=== PATIENT | female | born 1955 | race Caucasian/White ===

== ENCOUNTER 2020-08-09 11:23 | Day surgery (SDC) | payer OTHER ==
[2020-08-07 13:43] VITALS: BMI 22.3
[2020-08-09] MEDS ORDERED: MIDAZOLAM HCL 2 MG/2 ML SINGLE DOSE VIAL ONE ×2 (12:45→13:20)
[2020-08-09] MEDS ORDERED: ROPIVACAINE HCL 0.5% 30ML VIAL ONE (12:45)
[2020-08-09] MEDS ORDERED: PROPOFOL 20 ML ONE ×3 (13:15)
[2020-08-09] MEDS ORDERED: KETAMINE HCL 200 MG/20 ML VIAL ONE (13:56)
[2020-08-09] MEDS ORDERED: oxyCODONE HCL 5 MG TABLET PO PRN (15:38)
[2020-08-09] MEDS ORDERED: ONDANSETRON 4 MG/2 ML VIAL IVPUSH PRN (15:38)
[2020-08-09] MEDS ORDERED: LACTATED RINGERS SOLUTION 1,000 ML IV SCH (15:45)
[2020-08-09 17:13] VITALS: BP 140/88; PULSE 79; TEMP 97.9
== END 2020-08-09 17:13 | disposition home or self-care (01) ==
LOC: FASU 11:23
PROVIDERS: ATTEND Orthopaedic Surgery Hand Surgery
PROC: 0RBN0ZZ Excision of Right Wrist Joint, Open Approach (ICD-10-PCS; 2020-08-09)
PROC: 0RGN04Z Fusion of Right Wrist Joint with Internal Fixation Device, Open Approach (ICD-10-PCS; principal; 2020-08-09 13:28)
DX: M15.4 Erosive (osteo)arthritis (principal); M65.831 Other synovitis and tenosynovitis, right forearm
CPT/HCPCS: 25116; 25810; 64772; C1713; 73110-TC-RT-FY; 94760